=== PATIENT | female | born 1985 | race Caucasian/White ===

== ENCOUNTER → 2017-09-12 10:45 | Outpatient (REF) | payer MEDICAID, SELFPAY ==
[2017-09-12 13:54] LABS: ALT 58 U/L (12-78); AST 49 U/L (15-37); Alkaline Phosphatase 40 U/L (46-116); Bilirubin, Direct 0.13 mg/dL (0.00-0.20); Bilirubin, Total 0.4 mg/dL (0.2-1.0); Total Protein 7.5 g/dL (6.4-8.2)
== END ==
LOC: NCHCN 10:45
PROVIDERS: PCP Nurse Practitioner; Visit Provider Nurse Practitioner
DX: G35 Multiple sclerosis (principal)
CPT/HCPCS: 80076

== ENCOUNTER → 2017-09-23 15:16 | Outpatient (CLI) | payer MEDICAID, SELFPAY | PROVIDERS: PCP Nurse Practitioner; Visit Provider Nurse Practitioner | DX: G35 Multiple sclerosis (principal) | CPT/HCPCS: 93005; 93010 ==

== ENCOUNTER 2018-04-20 13:29 | Outpatient (REF) | payer MEDICAID, SELFPAY ==
[2018-04-20 14:27] LABS: TSH (W/Ref FT4) 2.76 uIU/mL (0.358-3.74)
== END 2018-04-20 13:49 ==
LOC: NCHCN 13:29
PROVIDERS: PCP Nurse Practitioner; Visit Provider Nurse Practitioner
DX: R94.6 Abnormal results of thyroid function studies (principal)
CPT/HCPCS: 84443

== ENCOUNTER 2018-05-04 15:40 | Outpatient (REF) | payer MEDICAID, SELFPAY ==
--- NOTE | 2018-05-04 15:14 | PAPFT_PTH ---
PATIENT: Charlette Finch LOC: [facility] U#:[id number] AGE/SX: 32/F ROOM: RE05/04/[address]: Martha Ortiz : 1985 BED: DIS: 05/04/2018 SPEC #: [id number] RECD: 05/05/18 13:03 STATUS: PRAFUL REGa #: [id number] NICOLE: 05/04/18 15:[address]: Martha Ortiz DEPT: [facility] Cytology RECD BY: Hamida James Tissues: 1 - CX/ENDOCX FOR PAP SMEARS Procedures: PAP THIN PREP/UVM Screening HPV DNA PROBE Comments: [id number]
== END 2018-05-04 16:00 ==
LOC: NCHCN 15:40
PROVIDERS: PCP Nurse Practitioner; Visit Provider Nurse Practitioner
DX: Z01.419 Encounter for gynecological examination (general) (routine) without abnormal findings (principal); Z12.4 Encounter for screening for malignant neoplasm of cervix; Z11.51 Encounter for screening for human papillomavirus (HPV)
CPT/HCPCS: 88142; 87624

== ENCOUNTER 2018-10-20 12:24 | Outpatient (REF) | payer SELFPAY ==
[2018-10-20 20:53] LABS: TSH 1.84 uIU/mL (0.36-3.74)
== END 2018-10-20 12:44 ==
LOC: NCHCN 12:24
PROVIDERS: PCP Nurse Practitioner Family; Visit Provider Nurse Practitioner Family
DX: R94.6 Abnormal results of thyroid function studies (principal)
CPT/HCPCS: 84443

== ENCOUNTER 2019-07-09 12:23 | Outpatient (REF) | payer OTHER, SELFPAY ==
--- NOTE | 2019-07-09 11:00 | PAPFT_PTH ---
PATIENT: Charlette Finch LOC: [facility]#:[id number] AGE/SX: 33/F ROOM: RE07/09/[address]: Sheri Moreno : 1985 BED: DIS: 07/09/2019 SPEC #: [id number] RECD: 07/10/19 13:05 STATUS: PRAFUL REGa #: [id number] NICOLE: 07/09/19 11:[address]: Sheri Moreno DEPT: [facility] Cytology RECD BY: Hamida James ENTERED: 07/10/19 13:05 SP TYPE: PAPFT OTHR DR: Thalia Bradley Tissues: 1 - CX/ENDOCX FOR PAP SMEARS Procedures: PAP THIN PREP/UVM Screening HPV DNA PROBE Comments: [id number]
[2019-07-09 21:00] LABS: TSH (W/Ref FT4) 1.62 uIU/mL (0.36-3.74)
== END 2019-07-09 12:43 ==
LOC: NCHCN 12:23
PROVIDERS: PCP Nurse Practitioner Family; Visit Provider Nurse Practitioner Family
DX: F52.6 Dyspareunia not due to a substance or known physiological condition (principal); R94.6 Abnormal results of thyroid function studies; G35 Multiple sclerosis; Z00.00 Encounter for general adult medical examination without abnormal findings; J30.2 Other seasonal allergic rhinitis; R06.83 Snoring; Z12.4 Encounter for screening for malignant neoplasm of cervix; Z11.51 Encounter for screening for human papillomavirus (HPV)
CPT/HCPCS: 88142; 84443; 87624

== ENCOUNTER 2020-02-04 18:09 | Outpatient (REF) | payer OTHER, SELFPAY | END 2020-02-04 18:29 | LOC: LBN 18:09 | PROVIDERS: PCP Nurse Practitioner Family; Visit Provider Nurse Practitioner Women's Health | DX: N76.0 Acute vaginitis (principal) | CPT/HCPCS: 87480; 87510; 87660 ==

== ENCOUNTER 2021-10-14 13:22 | Outpatient (REF) | payer OTHER, SELFPAY ==
[2021-10-14 16:46] LABS: TSH 1.23 uIU/mL (0.36-3.74)
== END 2021-10-14 13:23 | disposition home or self-care (01) ==
LOC: NCHCN 13:22
PROVIDERS: PCP Nurse Practitioner Family; Visit Provider Nurse Practitioner Family
DX: E04.1 Nontoxic single thyroid nodule (principal); R94.6 Abnormal results of thyroid function studies
CPT/HCPCS: 84443

== ENCOUNTER 2022-04-26 14:04 | Outpatient (REF) | payer OTHER, SELFPAY | END 2022-04-26 14:05 | disposition home or self-care (01) | LOC: LBN 14:04 | PROVIDERS: PCP Nurse Practitioner Family; Visit Provider Nurse Practitioner Family | DX: J02.9 Acute pharyngitis, unspecified (principal) | CPT/HCPCS: 87081 ==

== ENCOUNTER 2022-10-10 08:25 | Emergency (ER) | payer OTHER, SELFPAY ==
[2022-10-10 08:35] VITALS: BP 102/60; PULSE 93; RESP 18; TEMP 37.2; O2SAT 100
--- NOTE | 2022-10-10 09:04 | NUR.NOTE ---
[facility] accessed per Dr Ramirez for patient visit note for continuity of care.Nursing Note:
--- NOTE | 2022-10-10 09:08 | ED.GENADUL_ITS ---
Discharge Plan Disposition Patient Disposition: Home Condition: Stable Discharge Details Clinical Impression: Acute otitis media Primary Care Provider: Thalia Bradley ED Provider: Oscar Ramirez Home Meds and New Rx's Prescriptions: New levofloxacin 750 mg tablet 750 mg PO DAILY Qty: 9 0RF Continued Kyleena 17.5 mcg/24 hrs (5 yrs) 19.5 mg intrauterine device 1 device intrauterine ONCE Qty: 1 0RF Rx Instructions: as a single dose Ocrevus 30 mg/mL solution 600 mg IV [id number] Rx Instructions: initial rate = 40mL /hr; increase by 40mL /hr every 30 minutes to max rate of 200mL /hr cholecalciferol (vitamin D3) 50 mcg (2,000 unit) capsule 50 mcg PO DAILY Discharge Instructions Instructions: Ear Infection (ED) Additional Instructions: You were given initial dose of antibiotic here in the emergency department today. Your next dose is tomorrow. Please complete total 7-day course. If symptoms completely resolved, discontinue further use. If symptoms continue complete full 10-day course. Please contact your primary care physician to arrange follow-up. Return to the ER immediately for any worsening or new concerning symptoms. Referrals: Thalia Bradley [Primary Care Provider] - Medical Decision Making 36-year-old female with history of multiple sclerosis, on monoclonal antibody infusion every 6 months, here with left ear pain and fullness with cough and congestion over the past 2 weeks. Patient is saturating well. She has intermittent cough but is in no respiratory distress. Left ear examination consistent with acute otitis media. Patient does have some rhonchi and also subtle fine rales left lower lung. Consider bronchitis versus early pneumonia. Patient had persistent ear infection 5 months ago that was refractory to Augmentin and doxycycline but eventually responded well to Levaquin. Plan to initiate treatment with Levaquin 750 every 7 to 10 days. I will have the patient follow-up with her primary care physician. I am concerned that monoclonal antibody treatment is increasing her risk of infection. I discussed with the patient usual customary discharge instructions were review ed. HPI General Mode of arrival: ambulatory . Date/Time Provider Initiated Documentation: 10/10/22 08:40 . Limitations to Documentation: no limitations . Information obtained by: patient . HPI Narrative: 36-year-old female with history of multiple sclerosis, on monoclonal antibody infusion treatment every 6 months, here with chief complaint of ear pain. Patient notes left ear discomfort and fullness over the past 2 weeks. She has associated scratchy throat and cough. She has associated sinus pressure and congestion. No fever. Patient has had multiple negative COVID test at home. Of note, patient states that she had ear infection that developed about 6 months ago that did not respond to initial antibiotics (Augmentin and doxycycline) but did respond to Levaquin. Related Data Home Medications Medication Instructions Recorded Confirmed cholecalciferol (vitamin D3) 50 50 mcg PO DAILY 12/12/19 10/10/22 mcg (2,000 unit) capsule ocrelizumab 30 mg/mL intravenous 600 mg IV [id number] 12/12/19 10/10/22 solution (Ocrevus) levonorgestrel 17.5 mcg/24 hrs 1 device intrauterine ONCE #1 ea 04/22/20 10/10/22 (5yrs) 19.5mg intrauterine device (Kyleena) levofloxacin 750 mg tablet 750 mg PO DAILY #9 tabs 10/10/22 Previous Rx's Medication Instructions Recorded levonorgestrel 17.5 mcg/24 hrs 1 device intrauterine ONCE #1 ea 04/22/20 (5yrs) 19.5mg intrauterine device (Kyleena) levofloxacin 750 mg tablet 750 mg PO DAILY #9 tabs 10/10/22 Allergies Allergy/AdvReac Type Severity Reaction Status Date / Time metronidazole AdvReac Nausea Verified 06/17/20 10:08 General Stated Complaint: RespSymp CELSO: 4 Review of Systems All systems reviewed & are unremarkable except as noted in HPI and below Constitutional Constitutional: Reports fatigue and Denies fever(s) Respiratory Respiratory: Reports as per HPI Endocrine Endocrine: Reports fatigue PFSH All Active Problems Acute otitis media (Acute) IUD (intrauterine device) in place (Acute) 04/2020. Changed from DepoProvera to Kyleena IUD Encounter for IUD insertion (Acute) Contraception (Acute) Has used ParaGard in past: Heavy painful menses. 2019; Depo Dyspareunia (Acute) 02/2020. x1yr after starting DepoProvera for BC. Vaginal dryness (Acute) Multiple sclerosis (Chronic) Family History Other Personal history of malignant neoplasm Social History Smoking risk assessment performed?: No Household members: spouse and other Details: Olga. 02/2020 together 5yrs. x1. Number of Children: 0 Sexually active: Yes (Pt and do not want children.) Do you feel safe in your relationship?: Yes Female Reproductive History Menstrual control method: progesterone injection History History 0 Para Hx # Term Pregnancies Multiple births Hx # Pregnancies Ectopic pregnancies AB induced Hx Number of Living Children AB spontaneous Exam Const General: cooperative and no acute distress HENMT Mouth: moist mucous membranes, no muffled voice and no trismus Throat: posterior oropharynx abnormal erythema; no edema and no exudates and no uvular edema Eyes Conjunctivae: normal conjunctivae Sclera: normal sclerae Neck Neck: trachea midline Resp Effort & Inspection: cough and not labored Auscultation: rales on the left at the base, rhonchi and no wheezes Cardio Rate: regular rate and not tachycardic Rhythm: regular rhythm GI Palpation: soft, not firm, no guarding, no masses, not rigid and nontender Skin General skin exam: no rashes or lesions noted Neuro General: patient alert, patient awake and tone normal Psych Appearance: grossly normal Mental Status: mental status grossly normal Course Vital Signs Vital signs: Vital Signs Temperature 37.2 C 10/10/22 08:35 Pulse 93 H 10/10/22 08:35 Respiratory Rate 18 10/10/22 08:35 Blood Pressure 102/60 10/10/22 08:35 Pulse Oximetry 100 10/10/22 08:35 Temperature 37.2 C 10/10/22 08:35 Temperature Source Temporal Artery Scan 10/10/22 08:35 Pulse 93 H 10/10/22 08:35 Respiratory Rate 18 10/10/22 08:35 Blood Pressure 102/60 10/10/22 08:35 Blood Pressure Position Sitting 10/10/22 08:35 Pulse Oximetry 100 10/10/22 08:35 Oxygen Delivery Method Room Air 10/10/22 08:35 Oxygen Flow Rate 0 10/10/22 08:35 Pain Level 6 10/10/22 08:35
[2022-10-10 09:22] VITALS: BP 107/71; PULSE 89; RESP 22; TEMP 36.8; O2SAT 99
[2022-10-10] MEDS: levoFLOXacin 500 MG, levoFLOXacin 250 MG 750 MG PO (09:25)
== END 2022-10-10 09:25 | disposition home or self-care (01) ==
PROVIDERS: Emergency Provider Student in an Organized Health Care Education/Training Program; PCP Nurse Practitioner Family
DX: H66.92 Otitis media, unspecified, left ear (principal); G35 Multiple sclerosis; Z79.60 Long term (current) use of unspecified immunomodulators and immunosuppressants; Z79.899 Other long term (current) drug therapy
CPT/HCPCS: 99282

== ENCOUNTER → 2023-06-03 00:20 | Outpatient (CLI) | payer OTHER, SELFPAY ==
--- NOTE | 2023-06-03 13:45 | DI.MAMMO_ITS ---
Exam(s) MG MAMMO DIAGNOSTIC BI US AXILLA RT EXAM: MG MAMMO DIAGNOSTIC BI and U/S axilla RT CLINICAL HISTORY: RT AXILLARY LYMPHADENOPATHY, R59.0, LOCALIZED ENLARGED LYMPH NODES. TECHNIQUE: Craniocaudal and mediolateral oblique Full Field Digital Mammography views with Computer Aided Diagnosis followed by Tomosynthesis and right axillary ultrasound. COMPARISON: This is a baseline mammogram FINDINGS: Mammography/Tomosynthesis: Masses/Architectural Distortion: None seen. Microcalcifictions: No suspicious pleomorphic-type are seen. Skin Thickening/Nipple Retraction: None. Right axillary US: Echotexture: Normal appearance of the glandular tissue. Shadowing: No suspicious foci. Cyst: None. Solid lesions: None seen. Ductal dilation: None. IMPRESSION: 1. No evidence of malignancy is noted. 2. Unless there is more urgent need, follow-up screening mammography is recommended, as per [place] [employer] guidelines. 3. The findings were discussed with the patient on the date of the examination. BI-RADS Category 1 - Negative Breast Density - Category C - Heterogeneously dense Breast density Category C or D implies that the patient has dense breast tissue. Dense breast tissue can make it harder to find cancer on a mammogram. Dense breast tissue is also associated with an incr eased risk of breast cancer. This information about the result of the mammogram report was provided to the patient to raise their awareness. Use this report when you speak with the patient about their risks for breast cancer, which includes their family history. At that time, you may recommend additional screening tests (Ultrasoun d or MRI) as these tests may add significant information. A negative radiographic report should not delay biopsy if a dominant or clinically suspicious mass is present. Up to ten percent of cancers are not identified on mammography. A negative report may reinforce clinical impression. Adenosis and dense breasts may obscure an underlying neoplasm. False positive reports average 6 to 10%. Patient will receive a letter notifying them of these results.
== END ==
PROVIDERS: PCP Nurse Practitioner Family; Visit Provider Nurse Practitioner Family
DX: Z12.31 Encounter for screening mammogram for malignant neoplasm of breast (principal); R59.0 Localized enlarged lymph nodes
CPT/HCPCS: 76642; 77062; 77066; G0279

== ENCOUNTER 2023-08-16 16:56 | Emergency (ER) | payer OTHER, SELFPAY ==
[2023-08-16 17:06] VITALS: BP 117/77; PULSE 88; RESP 15; TEMP 35.6; O2SAT 99
--- NOTE | 2023-08-16 17:39 | ED.GENADUL_ITS ---
Discharge Plan Discharge Details Chief Complaint: Dizzy/Sync Primary Care Provider: Thalia Bradley ED Provider: Hamida Evangelista Home Meds and New Rx's Prescriptions: No Action Kyleena 17.5 mcg/24 hrs (5 yrs) 19.5 mg intrauterine device 1 device intrauterine ONCE Qty: 1 0RF Rx Instructions: as a single dose Ocrevus 30 mg/mL solution 600 mg IV [id number] Rx Instructions: initial rate = 40mL /hr; increase by 40mL /hr every 30 minutes to max rate of 200mL /hr cholecalciferol (vitamin D3) 50 mcg (2,000 unit) capsule 50 mcg PO DAILY levofloxacin 750 mg tablet 750 mg PO DAILY Qty: 9 0RF Discharge Data Discharge Date/Time-TO BE ENTERED AT DEPARTURE: 08/16/23 17:47 HPI General Date/Time Provider Initiated Documentation: 08/16/23 17:39 . HPI Narrative: 37-year-old female presents with report of visual disturbance which was followed by lightheadedness and a headache which has been persistent for the past several hours. Denies history of similar symptoms in the past. Does have a history of multiple sclerosis for which she does take medication for. She also had a head injury and had high impact 2 x 4 injury to her head on Tuesday. She states she was asymptomatic and home now. Related Data Home Medications Medication Instructions Recorded Confirmed cholecalciferol (vitamin D3) 50 50 mcg PO DAILY 12/12/19 10/10/22 mcg (2,000 unit) capsule ocrelizumab 30 mg/mL intravenous 600 mg IV [id number] 12/12/19 10/10/22 solution (Ocrevus) levonorgestrel 17.5 mcg/24 hr (up 1 device intrauterine ONCE #1 ea 04/22/20 10/10/22 to 5 yrs) 19.5mg intrauterine device (Kyleena) levofloxacin 750 mg tablet 750 mg PO DAILY #9 tabs 10/10/22 Previous Rx's Medication Instructions Recorded levonorgestrel 17.5 mcg/24 hr (up 1 device intrauterine ONCE #1 ea 04/22/20 to 5 yrs) 19.5mg intrauterine device (Kyleena) levofloxacin 750 mg tablet 750 mg PO DAILY #9 tabs 10/10/22 Allergies Allergy/AdvReac Type Severity Reaction Status Date / Time metronidazole AdvReac Nausea Verified 06/17/20 10:08 General Stated Complaint: Dizzy/Sync CELSO: 3 Exam Narrative Exam Narrative: Alert, oriented, pupils equal, no meningismus, no respiratory distress cardiac rate regular alert and oriented, speaking complete sentences Course Vital Signs Vital signs: Vital Signs Temperature 35.6 C L 08/16/23 17:06 Pulse 88 08/16/23 17:06 Respiratory Rate 15 08/16/23 17:06 Blood Pressure 117/77 08/16/23 17:06 Pulse Oximetry 99 08/16/23 17:06 Temperature 35.6 C L 08/16/23 17:06 Temperature Source Temporal Artery Scan 08/16/23 17:06 Pulse 88 08/16/23 17:06 Respiratory Rate 15 08/16/23 17:06 Blood Pressure 117/77 08/16/23 17:06 Blood Pressure Position Sitting 08/16/23 17:06 Pulse Oximetry 99 08/16/23 17:06 Oxygen Delivery Method Room Air 08/16/23 17:06 Oxygen Flow Rate 0 08/16/23 17:06 Pain Level 6 08/16/23 17:06 Medical Decision Making I was asked to evaluate this patient in the triage box for headache with recent head trauma which is new in onset. The patient know that we did not have CT services at this time that I be happy to assess evaluation MRIs, check labs, treat headache and transfer to a facility that is capable of performing a CT scan. I then walked around left patient to discuss with partner regarding which plan they would like. It was relayed to me that the patient decided to leave to go to another facility per nursing staff. Of note, patient is completely competent alert and fully capable of making this decision to leave this emergency department. Quality:SDOH Health Related Social Needs: No Data to Display PFSH All Active Problems (Updated 11/10/22 @ 00:07 by [employer] BLOOD) IUD (intrauterine device) in place (Acute) 04/2020. Changed from DepoProvera to Kyleena IUD Encounter for IUD insertion (Acute) Contraception (Acute) Has used ParaGard in past: Heavy painful menses. 2019; Depo Dyspareunia (Acute) 02/2020. x1yr after starting DepoProvera for BC. Vaginal dryness (Acute) Multiple sclerosis (Chronic) Family History Other Personal history of malignant neoplasm Social History Smoking/Tobacco Use Status: Never Smoking risk assessment performed?: Yes Alcohol Intake: current Alcohol Intake frequency: a few times a month Drug use: Never Substance use type: does not use Household members: spouse and other Details: Olga. 02/2020 together 5yrs. x1. Housing: house Number of Children: 0 Sexually active: Yes (Pt and do not want children.) Do you feel safe at home: Yes Do you feel safe in your relationship?: Yes Female Reproductive History Menstrual control method: progesterone injection History History 0 Para Hx # Term Pregnancies Multiple births Hx # Pregnancies Ectopic pregnancies AB induced Hx Number of Living Children AB spontaneous
== END 2023-08-16 17:47 ==
LOC: ER 17:53
PROVIDERS: Emergency Provider Physician Assistant; PCP Nurse Practitioner Family
DX: Z53.21 Procedure and treatment not carried out due to patient leaving prior to being seen by health care provider (principal)

== ENCOUNTER 2024-06-26 17:07 | Outpatient (REF) | payer OTHER, SELFPAY ==
--- NOTE | 2024-06-26 09:30 | PAPFT_PTH ---
PATIENT: Charlette Finch LOC: [facility] #:[id number] AGE/SX: 38/F ROOM: RE06/26/[address]: Thalia Bradley : 1985 BED: DIS: 06/26/2024 SPEC #: [id number] RECD: 06/26/24 18:28 STATUS: PRAFUL REGa #: [id number] NICOLE: 06/26/24 09:[address]: Thalia Bradley DEPT: [facility] Cytology RECD BY: Hamida aJmes Tissues: 1 - CX/ENDOCX FOR PAP SMEARS Procedures: PAP THIN PREP/UVM Screening HPV DNA PROBE Comments: [id number] (HPV 16 & 18/45)
[2024-06-26 15:23] LABS: HCT 45.3 % (36.0-46.0); HGB 15.2 g/dL (11.2-15.7); MCH 31.3 pg (27.0-33.0); MCHC 33.6 % (32.0-36.0); MCV 93 fL (80-95); MPV 10.1 fL (8.0-11.0); Platelet Count 260 10^3/uL (130-400); RBC 4.85 10^6/uL (3.93-5.22); RDW 12.2 % (11.7-14.6); RDW-SD 42.3 fL; WBC 6.59 10^3/uL (4.4-10.8)
[2024-06-26 16:45] LABS: ALT 20 U/L (14-59); AST 17 U/L (15-37); Albumin 4.6 g/dL (3.4-5.0); Alkaline Phosphatase 51 U/L (46-116); Anion Gap 6.6 mmol/L (3-11); BUN 6 mg/dL (7-18); Bilirubin, Total 0.6 mg/dL (0.2-1.0); CO2 28.4 mmol/L (21.0-32.0); CREATININE 0.6 mg/dL (0.55-1.02); Calcium 9.6 mg/dL (8.5-10.1); Calculated LDL 168 mg/dL (<100); Chloride 103 mmol/L (98-107); Cholesterol 271 mg/dL (<200); Estimated GFR 117.75 (mL/min/1.73m2); Glucose 88 mg/dL (74-106); HDL Cholesterol 84 mg/dL (>or=50); Potassium 4.3 mmol/L (3.5-5.1); Sodium 138 mmol/L (136-145); TSH (W/Ref FT4) 1.34 uIU/mL (0.36-3.74); Total Protein 7.5 g/dL (6.4-8.2); Triglyceride 97 mg/dL (<150)
== END 2024-06-26 17:08 | disposition home or self-care (01) ==
LOC: NCHCN 17:07
PROVIDERS: PCP Nurse Practitioner Family; Visit Provider Nurse Practitioner Family
DX: Z11.51 Encounter for screening for human papillomavirus (HPV) (principal); Z00.00 Encounter for general adult medical examination without abnormal findings; E04.1 Nontoxic single thyroid nodule; Z01.419 Encounter for gynecological examination (general) (routine) without abnormal findings
CPT/HCPCS: 80053; 80061; 85027; 88142; 84443; 87624

== ENCOUNTER 2024-10-28 11:42 | Emergency (ER) | payer OTHER, SELFPAY ==
[2024-10-28] VITALS (12 sets, daily range): BP systolic 121–143; BP diastolic 71–87; PULSE 68–90; RESP 18; TEMP 36.3; O2SAT 94–100
--- NOTE | 2024-10-28 11:54 | W.ED.GENAD ---
Discharge Plan Disposition Patient Disposition: Home Condition: Good Discharge Details Clinical Impression: Urticaria Primary Care Provider: Thalia Bradley ED Provider: Chema Gonzalez Home Meds and New Rx's Prescriptions: Continued Kyleena 17.5 mcg/24 hrs (5 yrs) 19.5 mg intrauterine device 1 device intrauterine ONCE Qty: 1 0RF Rx Instructions: as a single dose Ocrevus 30 mg/mL solution 600 mg IV [id number] Rx Instructions: initial rate = 40mL /hr; increase by 40mL /hr every 30 minutes to max rate of 200mL /hr cholecalciferol (vitamin D3) 50 mcg (2,000 unit) capsule 50 mcg PO DAILY levofloxacin 750 mg tablet 750 mg PO DAILY Qty: 9 0RF Discharge Instructions Instructions: Allergic Reaction ED Additional Instructions: Please follow-up with your primary care provider regarding your visit to the emergency department today. Be sure to discuss results of all test performed here today to include radiology, and laboratory testing as well as results for any pending cultures. Should your symptoms worsen, or if you develop new concerning symptoms, please return immediately emergency department for further evaluation. HPI General Date/Time Provider Initiated Documentation: 10/28/24 11:46. HPI Narrative: MDM/Narrative: Initial Assessment: 38-year-old female with multiple sclerosis presents after insect sting in left axilla. Reports swelling, pain, and scratchy, itchy sensation in mouth and throat. Denies history of anaphylaxis, allergic reactions, nausea, vomiting, diarrhea, or other rashes. Physical exam: clear oropharynx, no stridor, tolerating secretions, no wheezing, small area of urticaria in left axilla, otherwise normal. Differential Diagnosis: - Anaphylaxis: No evidence on examination. Monitor for development. - Localized reaction to insect sting: Minimal erythema and urticaria. Treat with cetirizine, Solu-Medrol, and famotidine. ED Course: - Monitor patient - Administer cetirizine - Administer Solu-Medrol - Administer famotidine ED course: 12: 55 On reassessment, patient is without stridor, wheezing, denies any symptoms of nausea or vomiting, and notes a resolution of the tingling sensation in her throat. At this time she is stable for discharge. Clinical Impression: Bee sting Urticaria Disposition: - Discharge This document was created with assistance from [employer]. The patient consented to its use. HPI: The patient, a 38-year-old female with a known diagnosis of multiple sclerosis, presents following an insect sting to the left axillary region approximately 15 minutes prior to evaluation. She reports localized swelling and pain at the site of the sting, accompanied by pruritus and a scratchy sensation in the oral cavity and pharynx. The patient has no prior history of anaphylaxis or allergic reactions. She denies experiencing nausea, vomiting, diarrhea, or any additional cutaneous manifestations. ROS: Negative besides as mentioned above Exam: Vital signs: Reviewed. General Appearance: Alert and oriented. No acute distress. HEENT: Clear oropharynx. Neck: Supple, full range of motion, no observable masses, No meningeal sign. Respiratory: No stridor, tolerating secretions, no wheezing. Cardiovascular: RRR, no edema. Gastrointestinal: Soft, nondistended, No rebound tenderness. Skin: Small area of urticaria in left axilla, otherwise normal. Neurological: Normal Gait, Grossly intact. Psychiatric: Appropriate for situation. Related Data Home Medications ?Medication ?Instructions ?Recorded ?Confirmed cholecalciferol (vitamin D3) 50 50 mcg PO DAILY 12/12/19 10/28/24 mcg (2,000 unit) capsule ocrelizumab 30 mg/mL intravenous 600 mg IV [id number] 12/12/19 10/28/24 solution (Ocrevus) levonorgestrel 17.5 mcg/24 hr (up 1 device intrauterine ONCE #1 ea 04/22/20 10/28/24 to 5 yrs) 19.5mg intrauterine device (Kyleena) levofloxacin 750 mg tablet 750 mg PO DAILY #9 tabs 10/10/22 10/28/24 Previous Rx's ?Medication ?Instructions ?Recorded levonorgestrel 17.5 mcg/24 hr (up 1 device intrauterine ONCE #1 ea 04/22/20 to 5 yrs) 19.5mg intrauterine device (Kyleena) levofloxacin 750 mg tablet 750 mg PO DAILY #9 tabs 10/10/22 Allergies Allergy/AdvReac Type Severity Reaction Status Date / Time metronidazole AdvReac Nausea Verified 10/28/24 11:51 General Stated Complaint: InsectBite CELSO: 3 Course Vital Signs Vital signs: Vital Signs Temperature 36.3 C L 10/28/24 11:46 Pulse 90 10/28/24 11:46 Respiratory Rate 18 10/28/24 11:46 Blood Pressure 143/87 H 10/28/24 11:46 Pulse Oximetry 100 10/28/24 11:46 Temperature 36.3 C L 10/28/24 11:46 Temperature Source Temporal Artery Scan 10/28/24 11:46 Pulse 90 10/28/24 11:46 Respiratory Rate 18 10/28/24 11:46 Blood Pressure 143/87 H 10/28/24 11:46 Blood Pressure Position Sitting 10/28/24 11:46 Pulse Oximetry 100 10/28/24 11:46 Oxygen Delivery Method Room Air 10/28/24 11:46 Oxygen Flow Rate 0 10/28/24 11:46 Pain Level 0 10/28/24 11:46 PFSH All Active Problems (Updated 10/28/24 @ 12:56 by Chema Gonzalez MD) Urticaria (Acute) IUD (intrauterine device) in place (Acute) 04/2020. Changed from DepoProvera to Kyleena IUD Encounter for IUD insertion (Acute) Contraception (Acute) Has used ParaGard in past: Heavy painful menses. 2019; Depo Dyspareunia (Acute) 02/2020. x1yr after starting DepoProvera for BC. Vaginal dryness (Acute) Multiple sclerosis (Chronic) Family History Other Personal history of malignant neoplasm Social History Smoking/Tobacco Use Status: Never Smoking risk assessment performed?: Yes Alcohol Intake: current Alcohol Intake frequency: a few times a month Alcohol type: wine Drug use: Never Substance use type: does not use Household members: spouse and other Details: Olga. 02/2020 together 5yrs. x1. Housing: house Number of Children: 0 Sexually active: Yes (Pt and do not want children.) Do you feel safe at home: Yes Do you feel safe in your relationship?: Yes Female Reproductive History Menstrual control method: progesterone injection History History 0 Para Hx # Term Pregnancies Multiple births Hx # Pregnancies Ectopic pregnancies AB induced Hx Number of Living Children AB spontaneous PAWSS Have you Been Recently Intoxicated or Drunk Within the Last 30 days?: No Have you Ever Experienced Previous Episodes of Alcohol Withdrawal?: No Have you ever Experienced Withdrawal Seizures?: No Have you ever Experienced Delirium Tremens(DT)s?: No Have you ever undergone Alcohol Rehabilitation Treatment (i.e, inpt ot outpatient treatment programs)?: No Have you ever Experienced Blackouts?: No Have you ever Combined Alcohol with other Downers within the last 90 days?: No Have you ever Combined Alcohol with any other Substance of Abuse during the last 90 days?: No Positive Blood Alcohol level on Presentation? [PCS.BAL]: No Evidence of Increased Autonomic Activity (i.e. HR>120, tremor, sweating, agitation, nausea)?: No Result: 0
[2024-10-28] MEDS: methylPREDNISolone SUCC 125 MG VIAL IVP (12:02)
[2024-10-28] MEDS: Famotidine 20 MG/2 ML VIAL IVP (12:03)
[2024-10-28] MEDS: Normal Saline 50 ML 150 ML (12:03)
[2024-10-28] MEDS: Cetirizine 10 MG TAB PO (12:07)
--- NOTE | 2024-10-28 12:44 | NUR.NOTE ---
Nursing Note: pt denies any symptoms at this time
== END 2024-10-28 13:05 | disposition home or self-care (01) ==
PROVIDERS: Emergency Provider General Practice; PCP Nurse Practitioner Family
DX: L50.8 Other urticaria (principal); T63.461A Toxic effect of venom of wasps, accidental (unintentional), initial encounter
CPT/HCPCS: 99284; 99283; 96374; 96375; J2919

== ENCOUNTER 2024-11-27 21:19 | Outpatient (REF) | payer OTHER, SELFPAY ==
[2024-11-27 21:53] LABS: Abs Immature Grans 0.01 10^3/uL (0.0-0.06); HCT 37.6 % (36.0-46.0); HGB 13.1 g/dL (11.2-15.7); Immature Grans % 0.2 %; MCH 31.6 pg (27.0-33.0); MCHC 34.8 % (32.0-36.0); MCV 91 fL (80-95); MPV 10.0 fL (8.0-11.0); Platelet Count 284 10^3/uL (130-400); RBC 4.14 10^6/uL (3.93-5.22); RDW 12.0 % (11.7-14.6); RDW-SD 40.3 fL; WBC 5.67 10^3/uL (4.4-10.8)
[2024-11-27 22:05] LABS: ALT 20 U/L (14-59); AST 11 U/L (15-37); Albumin 3.9 g/dL (3.4-5.0); Alkaline Phosphatase 44 U/L (46-116); Bilirubin, Direct 0.1 mg/dL (0.0-0.2); Bilirubin, Total 0.4 mg/dL (0.2-1.0); Total Protein 6.5 g/dL (6.4-8.2)
== END 2024-11-27 21:20 | disposition home or self-care (01) ==
LOC: NCHCN 21:19
PROVIDERS: PCP Nurse Practitioner Family; Visit Provider Nurse Practitioner Family
DX: Z79.899 Other long term (current) drug therapy (principal)
CPT/HCPCS: 80076; 82784; 85025